=== PATIENT | female | born 2000 | race Caucasian/White ===

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

== ENCOUNTER → 2020-01-28 10:25 | Outpatient (CLI) | payer SELFPAY ==
[2020-01-28 13:24] LABS: T4 Free Direct 1.08 ng/dL (0.76-1.46)
== END ==
PROVIDERS: PCP Pediatrics
DX: E06.3 Autoimmune thyroiditis (principal)
CPT/HCPCS: 36415; 84439; 84443

== ENCOUNTER 2021-05-11 11:25 | Outpatient (CLI) | payer MEDICAID, SELFPAY ==
[2021-05-11 12:51] LABS: Vitamin D,25 Hydroxy 46.6 ng/mL
[2021-05-11 12:57] LABS: T4 Free Direct 1.12 ng/dL (0.76-1.46); Thyroid Stim Hormone (TSH) 2.59 uIU/mL (0.358-3.74)
== END 2021-05-11 23:59 | disposition short-term general hospital (02) ==
LOC: BIMLAB 11:25
PROVIDERS: PCP Family Medicine; Visit Provider Internal Medicine Endocrinology, Diabetes & Metabolism
DX: E03.8 Other specified hypothyroidism (principal); E06.3 Autoimmune thyroiditis; E55.9 Vitamin D deficiency, unspecified
CPT/HCPCS: 36415; 82306; 84439; 84443

== ENCOUNTER → 2022-05-09 | Outpatient (CLI) | payer MEDICAID, SELFPAY ==
[2022-05-09 12:46] LABS: Vitamin D,25 Hydroxy 34.7 ng/mL
[2022-05-09 12:59] LABS: ALB/GLOB Ratio 0.8 RATIO (0.9-2.4); AST(SGOT) 23 U/L (15-37); Alanine Aminotransfer ALT/SGPT 23 U/L (13-56); Albumin, Serum 3.5 g/dL (3.2-5.0); Alkaline Phosphatase 47 U/L (45-117); Anion Gap 9 (5-15); BUN 14 mg/dL (7-18); BUN/Creat Ratio 14.4 RATIO (10-20); Calcium,Total 8.5 mg/dL (8.5-10.1); Chloride 105 mmol/L (98-107); Creatinine, Serum 0.97 mg/dL (0.55-1.02); EST Glomerular Filtration Rate 75 mL/min (>60); Est Glom Filt Rate - Afr Amer 91 mL/min (>60); Globulin 4.2 g/dL (2.2-4.2); Glucose 76 mg/dL (74-106); Potassium 4.4 mmol/L (3.5-5.1); Protein, Total 7.7 g/dL (6.4-8.2); Sodium Level 140 mmol/L (136-145); T4 Free Direct 0.87 ng/dL (0.76-1.46)
== END | disposition home or self-care (01) ==
LOC: BIMLAB 09:43
PROVIDERS: PCP Family Medicine; Referring Provider Internal Medicine Endocrinology, Diabetes & Metabolism; Visit Provider Internal Medicine Endocrinology, Diabetes & Metabolism
DX: E03.8 Other specified hypothyroidism (principal); E06.3 Autoimmune thyroiditis; E55.9 Vitamin D deficiency, unspecified
CPT/HCPCS: 36415; 80053; 82306; 84439; 84443

== ENCOUNTER → 2022-07-18 | Outpatient (CLI) | payer MEDICAID, SELFPAY ==
[2022-07-18 12:41] LABS: T4 Free Direct 1.08 ng/dL (0.76-1.46); Thyroid Stim Hormone (TSH) 3.31 uIU/mL (0.358-3.74)
== END | disposition home or self-care (01) ==
LOC: BIMLAB 09:34
PROVIDERS: PCP Family Medicine; Referring Provider Internal Medicine Endocrinology, Diabetes & Metabolism; Visit Provider Internal Medicine Endocrinology, Diabetes & Metabolism
DX: E03.8 Other specified hypothyroidism (principal); E06.3 Autoimmune thyroiditis
CPT/HCPCS: 36415; 84439; 84443

== ENCOUNTER 2023-01-01 22:39 | Emergency (ER) | payer MEDICAID, SELFPAY ==
[2023-01-01 22:39] VITALS: BP 131/63; PULSE 85; RESP 23; TEMP 36; O2SAT 100; BMI 25.9
--- NOTE | 2023-01-01 22:56 | ED.VIS.DYS ---
HPI History of Present Illness Chief Complaint: Shortness of Breath Informant: patient Onset/Context/Timing Onset: Today and Hours (1) Context: sudden Timing: Continuous Worsened by: Nothing Relieved by: Nothing Associated Symptoms cough, ear pain and sweats; Negative for rhinorrhea, post nasal drip, fever, sore throat, chills, clear sputum, white sputum, yellow sputum or green sputum Chest Pain: Positive for Continuous and Sharp Narrative Narrative: Patient presents with shortness of breath began rather suddenly tonight. Mother states it began approximately 1 hour prior to arrival. Mother states it has been constant. Mother states patient was laying in bed when she started having some shortness of breath. Mother states patient was breathing faster than normal. Mother states patient has had problems with her ears for the past few weeks. Mother states that patient has been prescribed Flonase for this. Mother states she has been compliant with her Flonase. Mother states patient broke out into a sweat tonight. Patient admits to some pain in her upper chest. Patient denies any nausea or vomiting. PE Risk Factors: Negative for Cancer, OCP + Smoking + > 35, Prior DVT or PE, Recent immobilization, Recent surgery or Recent travel [facility] Medical History (Updated 01/02/23 @ 02:[address] 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 Murmur Trisomy 21, Down syndrome Vitamin D deficiency Home Medications ascorbic acid (vitamin C) 1,000 mg tablet,extended release 1,000 mg PO DAILY 05/11/21 [History Last Taken Unknown] cholecalciferol (vitamin D3) 125 mcg (5,000 unit) capsule 125 mcg PO DAILY 05/11/21 [History Last Taken Unknown] levothyroxine 112 mcg tablet 112 mcg PO DAILY #90 tabs 11/14/22 [Rx Last Taken Unknown] fluticasone propionate 50 mcg/actuation nasal spray,suspension 2 spray intranasal BID 01/01/23 [History Last Taken Unknown] Allergy/AdvReac Type Severity Reaction Status Date / Time No Known Allergies Allergy Verified 01/01/23 22:39 Family History Other Arthritis CVA (cerebral vascular accident) Heart disease Hypertension Surgical History (Updated 01/01/23 @ 23:[address] Edwin Donald DO) History of tonsillectomy and adenoidectomy Social History Smoking Status: Never smoker alcohol intake: never substance use type: does not use what type of physical activity do you participate in: walking frequency: daily ROS ROS ED Constitutional Constitutional ED: Reports sweats; Denies chills or fever(s) Eyes Eyes: Denies blurry vision or change in vision ENT ENT ED: Reports ear pain; Denies rhinorrhea or sore throat Cardiovascular Cardiovascular: Reports chest pain; Denies palpitations Respiratory/Chest Respiratory/Chest: Reports cough and dyspnea Gastrointestinal Gastrointestinal: Denies nausea or vomiting Genitourinary Genitourinary ED: Denies dysuria or hematuria Musculoskeletal Musculoskeletal: Denies back pain or neck pain Integumentary Denies abscess or rash Neurologic Neurologic: Denies headache(s) or weakness Allergic/Immunologic Allergic/Immunologic ED: Denies mouth swelling or urticaria EXAM Physical Exam Const Vital Signs: 01/01/23 22:39 01/01/23 22:39 01/01/23 23:14 Temperature 96.8 F L Temperature Source Temporal Pulse Rate 85 92 Respiratory Rate 23 H 28 H Respiratory Effort Respiratory Depth Respiratory Pattern Blood Pressure 131/63 H Blood Pressure Mean 85 Pulse Ox 100 Oxygen Delivery Method Room Air 01/01/23 23:18 01/02/23 00:23 01/02/23 01:24 Temperature Temperature Source Pulse Rate 98 77 Respiratory Rate 34 H 20 H Respiratory Effort Labored Respiratory Depth Normal Respiratory Pattern Normal Blood Pressure 128/71 H Blood Pressure Mean 90 Pulse Ox 98 Oxygen Delivery Method Room Air Room Air 01/02/23 02:03 Temperature Temperature Source Pulse Rate 76 Respiratory Rate 22 H Respiratory Effort Respiratory Depth Respiratory Pattern Blood Pressure 131/65 H Blood Pressure Mean 87 Pulse Ox 98 Oxygen Delivery Method Room Air Positive well nourished and well developed General Appearance ED: well developed and NAD HEENT Reports moist mucous membranes Neck supple and no JVD Resp normal respiratory effort and clear to auscultation bilaterally Cardio regular rate and regular rhythm GI normal to inspection, nondistended, normoactive bowel sounds and non-tender Palpation: soft Extremity normal to inspection General Extremety ED: Negative for edema or tenderness General Extremity: Negative for edema Neuro oriented x3, CN's II-XII intact bilaterally and no sensory deficits noted Sensorium / Orientation: alert Motor Exam: strength 5/5 throughout Psych mental status grossly normal Skin no rashes or lesions noted MDM MDM MDM Narrative Medical decision making narrative: Differential diagnosis includes pneumonia, pulmonary embolism, pneumothorax, anxiety, and reactive airway disease. CBC will be obtained to assess for leukocytosis or anemia. Basic metabolic profile will be obtained to assess for electrolyte abnormality and renal function. D-dimer will be obtained to assess for pulmonary embolism. Lab Data Attestation: I reviewed the patient's lab results. Lab results narrative: CBC was reviewed and was within normal limits. Basic metabolic profile was reviewed and showed a slightly elevated creatinine of 1.21. Potassium was slightly low at 3.3. The remainder was essentially within normal limits. D-dimer was reviewed and was slightly elevated at 0.73. Labs: Laboratory Results - last 24 hr 01/01/23 23:15 WBC 5.1 RBC 4.36 Hgb 14.5 Hct 42.3 MCV 97.0 MCH 33.3 H MCHC 34.3 RDW Std Deviation 42.5 RDW Coeff of Christelle 11.9 Plt Count 241 MPV 9.0 Immature Gran % (Auto) 0.600 Neut % (Auto) 33.3 L Lymph % (Auto) 54.9 H [place] % (Auto) 7.8 Eos % (Auto) 1.6 Baso % (Auto) 1.8 H Absolute Neuts (auto) 1.7 L Absolute Lymphs (auto) 2.80 Nucleated RBC % 0 D-Dimer Quant (PE/DVT) 0.73 H* Sodium 140 Potassium 3.3 L Chloride 110 H Carbon Dioxide 20.0 L Anion Gap 10 BUN 16 Creatinine 1.21 H Estim Creat Clear Calc 59.82 Est GFR (MDRD) Af Amer 70 Est GFR (MDRD) Non-Af 58 L BUN/Creatinine Ratio 13.2 Glucose 146 H Calcium 9.3 Radiography CTA PE Study: No Evidence of PE and No Evidence of Dissection Diagnostic Testing: Clinical Impression(s) from Imaging Studies Chest CTA 01/01/23 23:48 IMPRESSION: Limited exam without evidence of pulmonary embolism through the proximal segmental levels. Distal evaluation is nondiagnostic. No evidence of acute airspace disease. Electronically Signed: Henry Little MD at 0:59 EDT , CTA of the chest was obtained. There is no evidence of central or proximal pulmonary embolism. There is no evidence of airspace disease. This was interpreted by the radiologist and was also independently reviewed by myself. Treatment and Re-Evaluation :: Patient was given a DuoNeb aerosol here. Patient was feeling somewhat better on reevaluation. Patient is still somewhat tachypneic. Patient was given a repeat albuterol aerosol. Patient felt much better after this. Patient is resting comfortably. Patient and mother were advised of the findings. Patient and mother were instructed to continue Flonase as previously prescribed. Patient and mother were instructed to follow-up with the patient's primary care physician in 5 to 7 days. Mother understood and was agreeable with the plan. All questions were answered. Discharge Plan Triage Chief Complaint: Shortness of Breath ED Provider: Edwin Donald Dx/Rx/DC Orders Clinical Impression: Reactive airway disease Instructions: ED Bronchitis, No Antibiotic (Adult), ED URI, Viral, No Abx (Adult) Prescriptions: No Action cholecalciferol (vitamin D3) 125 mcg (5,000 unit) capsule 125 mcg PO DAILY ascorbic acid (vitamin C) 1,000 mg tablet extended release 1,000 mg PO DAILY fluticasone propionate 50 mcg/actuation spray,suspension 2 spray INTRANASAL BID levothyroxine 112 mcg tablet 112 mcg PO DAILY Qty: 90 2RF Primary Care Provider: Tejinder Underwood Referrals: Josiah Johnson MD [[facility]] - 5-7 Days Disposition Disposition: Home, Self Care
[2023-01-01] MEDS: Ipratropium/Albuterol Sulfate 3 ML AMPUL.NEB INHALATION (23:13)
[2023-01-01 23:14] VITALS: PULSE 92; RESP 28
[2023-01-01 23:18] VITALS: O2SAT 99
[2023-01-01 23:22] LABS: Absolute Neutrophil Count 1.7 X10^3/uL (2.0-7.7); Basophil# 0.09 X10^3/uL; Basophil% 1.8 % (0-1); Eosinophil# 0.08 X10^3/uL; Eosinophils% 1.6 % (0-5); Hematocrit 42.3 % (37-47); Hemoglobin 14.5 g/dL (12.0-15.0); Lymphocyte % 54.9 % (19-41); Mean Corp Hgb Conc 34.3 g/dL (32-36); Mean Corpuscular Hgb 33.3 pg (27.0-32.0); Monocyte% 7.8 % (0-10); NRBC Flagged by Analyzer 0 % (0-5); Neutrophil % 33.3 % (47-70); Platelet Count 241 K/mm3 (150-450); RBC Distribution Width CV 11.9 % (11.6-14.6); RBC Distribution Width SD 42.5 fl (35.1-43.9); Red Blood Count 4.36 M/mm3 (4.2-5.4); White Blood Count 5.1 K/mm3 (4.4-11.0)
[2023-01-01 23:43] LABS: Anion Gap 10 (5-15); BUN 16 mg/dL (7-18); BUN/Creat Ratio 13.2 RATIO (10-20); Calcium,Total 9.3 mg/dL (8.5-10.1); Chloride 110 mmol/L (98-107); Creatinine, Serum 1.21 mg/dL (0.55-1.02); EST Glomerular Filtration Rate 58 mL/min (>60); Est Glom Filt Rate - Afr Amer 70 mL/min (>60); Estimated Creatinine Clearance 59.82 ml/min; Glucose 146 mg/dL (74-106); Potassium 3.3 mmol/L (3.5-5.1); Sodium Level 140 mmol/L (136-145)
[2023-01-01 23:48] LABS: D-Dimer Quantitative (DVT/PE) 0.73 FEU/ug/m (0.27-0.49)
--- NOTE | 2023-01-01 23:48 | CT_ITS ---
STUDY: CTA CHEST REASON FOR EXAM: Female, 22 years old. Elevated D-dimer RADIATION DOSAGE (If Supplied By Facility): CTDIvol = ( 14.36 ) mGy, DLP = ( 260.95 ) mGycm TECHNIQUE: The examination was performed with the intravenous administration of IV 100mL Isovue-370. Post-processing of the angiographic images was performed, with multiplanar reformation and 3D reconstruction. Individualized dose optimization techniques were used for this CT. COMPARISON: None. FINDINGS: Study is significantly limited by respiratory motion. There is no demonstrated pulmonary embolism through the proximal segmental levels.. Distal segmental and subsegmental level evaluation is nondiagnostic No aortic dissection or aneurysmal dilatation. Normal heart and pericardium. No densely calcified coronary atherosclerosis. No mediastinal or bulky hilar adenopathy. Unremarkable esophagus Normal osseous structures. Normal visualized upper abdomen. CT/CTA Chest W/WO Contrast IMPRESSION: Limited exam without evidence of pulmonary embolism through the proximal segmental levels. Distal evaluation is nondiagnostic. No evidence of acute airspace disease. Electronically Signed: Henry Little MD at 0:59 EDT ,
[2023-01-02 00:23] VITALS: BP 128/71; PULSE 98; RESP 34; O2SAT 98
[2023-01-02] MEDS: Albuterol 2.5 MG/3 ML VIAL.NEB. INHALATION (01:23)
[2023-01-02 01:24] VITALS: PULSE 77; RESP 20
[2023-01-02 02:03] VITALS: BP 131/65; PULSE 76; RESP 22; O2SAT 98
[2023-01-02 03:11] VITALS: BP 114/61; PULSE 77; RESP 18; O2SAT 97
== END 2023-01-02 03:11 | disposition home or self-care (01) ==
PROVIDERS: Emergency Provider Emergency Medicine; PCP Internal Medicine Endocrinology, Diabetes & Metabolism; Visit Provider Emergency Medicine
DX: J45.909 Unspecified asthma, uncomplicated (principal); E03.8 Other specified hypothyroidism; E55.9 Vitamin D deficiency, unspecified; Z79.899 Other long term (current) drug therapy
CPT/HCPCS: 71275; 80048; 85025; 85379; 87428; 94640; 99285; Q9967

== ENCOUNTER 2023-01-02 10:20 | Emergency (ER) | payer MEDICAID, SELFPAY ==
[2023-01-02 10:21] VITALS: BP 130/82; PULSE 74; RESP 26; TEMP 36.3; O2SAT 100; BMI 25.7
--- NOTE | 2023-01-02 10:34 | EKG12_ITS ---
Test Reason : Blood Pressure : / mmHG Vent. Rate : 071 BPM Atrial Rate : 071 BPM P-R Int : 126 ms QRS Dur : 094 ms QT Int : 412 ms P-R-T Axes : 039 042 003 degrees QTc Int : 447 ms Normal sinus rhythm RSR' or QR pattern in V1 suggests right ventricular conduction delay Borderline ECG Confirmed by JAREN GUSMAN, DESTINEY ([id number]), order editor LENY WATT ([id number]) on 01/06/2023 11:31:43 AM Referred By: Confirmed By:DESTINEY EASTMAN MD
[2023-01-02] MEDS: 0.9% Normal Saline 1,000 ML 999 ML IV (10:51)
[2023-01-02] MEDS: MethylPREDNISolone 125 MG/2 ML Vial IV (10:51)
[2023-01-02] MEDS: Ipratropium/Albuterol Sulfate 3 ML AMPUL.NEB INHALATION (10:58)
[2023-01-02 10:59] VITALS: PULSE 88; RESP 20; O2SAT 100
--- NOTE | 2023-01-02 11:02 | ED.VIS.DYS ---
HPI History of Present Illness Chief Complaint: Shortness of Breath Narrative Narrative: 22-year-old female presenting with shortness of breath. She states that this started yes. She was seen and evaluated in the ED yesterday and had some breathing treatments which she states helped although she was not having any wheezing. She has no history of asthma. Her mother states that she was sick with a cold about 2 weeks ago but that is resolved. Patient describes her throat as squeezing and tight. Patient had positive D-dimer yesterday and had a CTA of the chest which was negative. Her lab work was normal. She went home and today again felt this tightness in her throat and shortness of breath. 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 Murmur Trisomy 21, Down syndrome Vitamin D deficiency Home Medications ascorbic acid (vitamin C) 1,000 mg tablet,extended release 1,000 mg PO DAILY 05/11/21 [History Last Taken Unknown] cholecalciferol (vitamin D3) 125 mcg (5,000 unit) capsule 125 mcg PO DAILY 05/11/21 [History Last Taken Unknown] levothyroxine 112 mcg tablet 112 mcg PO DAILY #90 tabs 11/14/22 [Rx Last Taken Unknown] fluticasone propionate 50 mcg/actuation nasal spray,suspension 2 spray intranasal BID 01/01/23 [History Last Taken Unknown] albuterol sulfate 90 mcg/actuation aerosol inhaler (Ventolin HFA) 1 - 2 puff inhalation Q4H PRN PRN Wheezing #8.5 grams 01/02/23 [Rx Last Taken Unknown] ondansetron 4 mg disintegrating tablet 4 mg PO Q8H PRN PRN Nausea #14 tabs 01/02/23 [Rx Last Taken Unknown] prednisone 20 mg tablet 40 mg (2 x 20 mg) PO DAILY #4 tabs 01/02/23 [Rx Last Taken Unknown] Allergy/AdvReac Type Severity Reaction Status Date / Time No Known Allergies Allergy Verified 01/02/23 10:22 Family History Other Arthritis CVA (cerebral vascular accident) Heart disease Hypertension Surgical History History of tonsillectomy and adenoidectomy Social History Smoking Status: Never smoker alcohol intake: never substance use type: does not use what type of physical activity do you participate in: walking frequency: daily ROS ROS ED Constitutional Constitutional ED: Denies chills, fever(s) or sweats Eyes Eyes: Denies blurry vision or change in vision ENT ENT ED: Reports sore throat; Denies ear pain Cardiovascular Cardiovascular: Denies chest pain, palpitations or racing heartbeat Respiratory/Chest Respiratory/Chest: Reports cough and dyspnea Gastrointestinal Gastrointestinal: Denies abdominal pain, constipation, diarrhea, nausea or vomiting Genitourinary Genitourinary ED: Denies dysuria, hematuria or urinary frequency Musculoskeletal Musculoskeletal: Denies arthralgias, myalgias or neck pain Integumentary Denies abscess, Abrasions or rash Neurologic Neurologic: Denies headache(s), paresthesias or weakness Psychiatric Psychiatric: Denies anxiety, depression, suicidal ideation or suicidal thoughts Endocrine Endocrinology: Denies polydipsia or polyuria EXAM Physical Exam Const Vital Signs: 01/02/23 10:21 01/02/23 10:59 01/02/23 10:59 Temperature 97.3 F L Temperature Source Temporal Pulse Rate 74 88 Respiratory Rate 26 H 20 H Respiratory Effort Respiratory Pattern Normal Blood Pressure 130/82 H Blood Pressure Mean 98 Pulse Ox 100 100 Oxygen Delivery Method Room Air Room Air 01/02/23 14:38 01/02/23 14:38 Temperature Temperature Source Pulse Rate Respiratory Rate Respiratory Effort Short of Breath Respiratory Pattern Blood Pressure Blood Pressure Mean Pulse Ox 99 Oxygen Delivery Method Room Air Room Air Positive well nourished General Appearance ED: NAD; Negative for pallor HEENT Reports moist mucous membranes Eyes PERRL and EOMs intact bilaterally Neck no lymphadenopathy, supple, no meningeal signs and no JVD Resp normal respiratory effort and clear to auscultation bilaterally Resp Narrative: Slightly tachypneic Auscultation: Negative for rales or rhonchi Cardio regular rate and regular rhythm Neuro oriented x3 and CN's II-XII intact bilaterally Sensorium / Orientation: alert Speech: speech normal Motor Exam: strength 5/5 throughout Psych mental status grossly normal Skin no wounds General Skin Exam: Negative for jaundice or pallor MDM MDM MDM Narrative Medical decision making narrative: Patient presenting with throat tightness and shortness of breath. This all started yesterday. She had a negative work-up already for PE. Her labs were normal. Today I will check an EKG and high-sensitivity troponin to rule out ischemia as a cause. She states her breathing treatments helps we will give her DuoNeb. We will also start her on some prednisone. When I return to the room for reevaluation the patient had some nausea and she was given Zofran and this did help considerably. On reevaluation she is resting comfortably. Her EKG was obtained shows a normal sinus rhythm with a ventricular rate of 71 bpm without sign of ischemic change. High-sensitivity troponin was 4 . I do not believe she is a delta troponin. She had a CTA yesterday which was negative final believe she did a chest x-ray. She will be sent home with a prescription for Zofran, and albuterol inhaler for subjective dyspnea and depression numbers. Impression: 1. Dyspnea 2. Nausea Lab Data Attestation: I reviewed the patient's lab results. Labs: Laboratory Results - last 24 hr 01/02/23 10:50 Troponin I High Sens 4 Discharge Plan Triage Chief Complaint: Shortness of Breath ED Provider: Ghulam Bowers Dx/Rx/DC Orders Instructions: ED Dyspnea Prescriptions: New ondansetron 4 mg tablet,disintegrating 4 mg PO Q8H PRN PRN (Reason: Nausea) Qty: 14 0RF albuterol sulfate [Ventolin HFA] 90 mcg/actuation HFA aerosol inhaler 1 - 2 puff inhalation Q4H PRN PRN (Reason: Wheezing) Qty: 8.5 0RF prednisone 20 mg tablet 40 mg PO DAILY Qty: 4 0RF No Action cholecalciferol (vitamin D3) 125 mcg (5,000 unit) capsule 125 mcg PO DAILY ascorbic acid (vitamin C) 1,000 mg tablet extended release 1,000 mg PO DAILY fluticasone propionate 50 mcg/actuation spray,suspension 2 spray INTRANASAL BID levothyroxine 112 mcg tablet 112 mcg PO DAILY Qty: 90 2RF Primary Care Provider: Tejinder Underwood Referrals: Tejinder Underwood MD [Primary Care Provider] - Disposition Disposition: Home, Self Care Discharge Date/Time: 01/02/23 15:00
[2023-01-02 11:16] LABS: Troponin-I HS 4 pg/mL (3.0-54.0)
[2023-01-02 14:38] VITALS: O2SAT 100; O2SAT 99
== END 2023-01-02 15:00 | disposition home or self-care (01) ==
PROVIDERS: Emergency Provider Student in an Organized Health Care Education/Training Program; PCP Internal Medicine Endocrinology, Diabetes & Metabolism; Visit Provider Student in an Organized Health Care Education/Training Program
DX: R06.00 Dyspnea, unspecified (principal); R11.0 Nausea; E03.8 Other specified hypothyroidism; E55.9 Vitamin D deficiency, unspecified; Z79.899 Other long term (current) drug therapy
CPT/HCPCS: J2405; 84484; 93005; 94640; 96361; 96374; 99283; J7030; A4216

== ENCOUNTER → 2023-01-16 | Outpatient (CLI) | payer MEDICAID, SELFPAY ==
[2023-01-16 13:21] LABS: T4 Free Direct 1.22 ng/dL (0.76-1.46)
== END | disposition home or self-care (01) ==
LOC: BIMLAB 11:32
PROVIDERS: PCP Internal Medicine Endocrinology, Diabetes & Metabolism; Referring Provider Internal Medicine Endocrinology, Diabetes & Metabolism; Visit Provider Internal Medicine Endocrinology, Diabetes & Metabolism
DX: E03.8 Other specified hypothyroidism (principal); E06.3 Autoimmune thyroiditis
CPT/HCPCS: 36415; 84439; 84443

== ENCOUNTER 2023-07-11 10:22 | Outpatient (RCR) | payer MEDICAID, SELFPAY ==
--- NOTE | 2023-07-11 11:19 | HP.PTEVAL ---
Patient's Visit Information Visit Information Visit Information: ADALBERTO HANSON is a 23 year old F referred to Physical Therapy by Dr. Axel Jiang MD with a diagnosis of flat feet B. Date of Evaluation: 07/11/23 Physical Therapist: Edwin Alvarado, DPT, OCS, CSCS Visit Plan Frequency: 1-2x /Week Duration: 4 Weeks Plan: weekly to 2x/week for 2-4 as needed. start with pt getting vasyli orhotics(since insurance not cover custom) and fit to foot in therapy if needed. Pt to trial these and consider further need for strength adn stretch of ankles and gastroc, SLS exercises and further custom orthotics. Subjective Subjective: Mom present adn feet are very flat and ankles turning in. Always have but now started to cause her pain. Last 6 months are more painful. They raise [place] and she walks 10688 steps daily since 13 yo. Arch hurts intermittently, better standing and sitting and worse if on feet for long time. Sleep is fine. No regular exercises. No exercises. Lots of walking in her schedule, rides bike, Student and can sit without a problem. Pain B feet: Pain Intensity (Out of 10): 1 Pain Intensity Range: 0 and 8 Objective Objective: Walks into PT painfree adn I, brace on R ankle and will get one for L. Dons and doffs I. Transfers bed and chair I. Max pes planus B feet with slight hindfoot valgus. No pain today, not overly tender. Hypermobile in metatarsal heads. Ankle aROM 0 Df B 55 PF, Inv and eversion awkward but able with AROM WFL. strength ankles 3+ inv/ev and 4 DF and 4+ PF B. sensation WNL to gross light touch. SLS is lots of sway and fot movement but able B. Balance/Special Test Scores Lower Extremity Functional Score: 66 Goals Goal 1:: I in use of orthoitcs for pes planus Goal Time Frame: 2-4 Weeks Goal 2:: i appropriate ex for ankle strength and gastroc stretch if desired Goal Time Frame: 4-6 Weeks Goal 3:: 90% improvement in overall foot pain with ambulation Goal Time Frame: 4-6 Weeks Rehabilitation Potential Physical Therapy Diagnosis: pain in feet at times limtiing comfortable funciton Rehabilitation Potential: Good Anticipated Interventions Patient/Client Instruction: Educate patient on: Condition and Plan of Care For the Purpose of:: To decrease pain Therapeutic Exercise to Include: Strength training and Flexibilty training For the Purpose of:: To decrease pain Orthotics: Shoe insert For the Purpose of:: To decrease pain Text: Thank you for the opportunity to evaluate your patient. For Medicare and Medicare HMO plans, please review the plan of care and approve it. It will need to be FAXED BACK to us at [phone] for Medicare purposes. For Medicare only, by signing this I certify the plan of care. Please let me know if there are questions or concerns regarding this plan of care. Physician Signature: Date:
--- NOTE | 2023-09-20 13:15 | HP.PT.NRP ---
Patient Information Patient Information: ADALBERTO HANSON was seen in my office for initial evaluation on 07/11/23. The following Plan of Care was established for this patient: POC Established Initial Frequency: 1-2x /Week Initial Duration: 4 Weeks Anticipated Interventions Patient/Client Instruction: Educate patient on: Condition and Plan of Care For the Purpose of:: To decrease pain Therapeutic Exercise to Include: Strength training and Flexibilty training For the Purpose of:: To decrease pain Orthotics: Shoe insert For the Purpose of:: To decrease pain Last Seen Last Seen: This patient was last seen in our office 07/11/23. Pertinent comments regarding their Physical therapy will appear below: Pt seen for IE and OPOC established but no more visits scheduled or attended. At this point, it has been over 2 months and I will discontinue. At this point I will be discontinuing this patient from physical therapy. I would be happy to see this patient again in the future if found appropriate by the physician. Thank you! Edwin Alvarado, DPT, OCS, CSCS Balance/Gait/Functional tests Balance/Special Test Scores Lower Extremity Functional Score: 66
== END 2023-07-11 19:00 | disposition home or self-care (01) ==
LOC: PT 10:22
PROVIDERS: PCP Family Medicine; Referring Provider Orthopaedic Surgery Sports Medicine; Visit Provider Orthopaedic Surgery Sports Medicine
DX: M21.41 Flat foot [pes planus] (acquired), right foot (principal); M21.42 Flat foot [pes planus] (acquired), left foot
CPT/HCPCS: 97161

== ENCOUNTER → 2024-05-07 | Outpatient (CLI) | payer MEDICAID, SELFPAY ==
[2024-05-07 12:25] LABS: Vitamin D,25 Hydroxy 44.8 ng/mL
[2024-05-07 12:35] LABS: ALB/GLOB Ratio 0.9 RATIO (0.9-2.4); AST(SGOT) 14 U/L (15-37); Alanine Aminotransfer ALT/SGPT 19 U/L (13-56); Albumin, Serum 3.6 g/dL (3.2-5.0); Alkaline Phosphatase 53 U/L (45-117); Anion Gap 2 (5-15); BUN 14 mg/dL (7-18); BUN/Creat Ratio 17.5 RATIO (10-20); Calcium,Total 9.1 mg/dL (8.5-10.1); Chloride 105 mmol/L (98-107); EST Glomerular Filtration Rate 93 mL/min (>60); Est Glom Filt Rate - Afr Amer 112 mL/min (>60); Globulin 4.1 g/dL (2.2-4.2); Glucose 73 mg/dL (74-106); Potassium 4.1 mmol/L (3.5-5.1); Protein, Total 7.7 g/dL (6.4-8.2); Sodium Level 138 mmol/L (136-145); T4 Free Direct 1.09 ng/dL (0.76-1.46)
== END | disposition home or self-care (01) ==
LOC: BIMLAB 08:58
PROVIDERS: PCP Family Medicine; Referring Provider Internal Medicine Endocrinology, Diabetes & Metabolism; Visit Provider Internal Medicine Endocrinology, Diabetes & Metabolism
DX: E03.8 Other specified hypothyroidism (principal); E06.3 Autoimmune thyroiditis; E55.9 Vitamin D deficiency, unspecified; Q90.9 Down syndrome, unspecified
CPT/HCPCS: 36415; 80053; 82306; 84439; 84443